=== PATIENT | male | born 1980 | race African-American/Black ===

== ENCOUNTER 2025-05-26 06:26 | Emergency (ER) | payer SELFPAY ==
[~2025-05-26] VITALS: Ht 180.3 cm; Wt 64.0 kg
[2025-05-26 06:34] VITALS: O2SAT 100
[2025-05-26] MEDS: ONDANSETRON HCL 4MG/2ML INJ IV ONE (08:27)
[2025-05-26] MEDS: SODIUM CHLORIDE 0.9% 1,000 ML IV ONE (08:27)
[2025-05-26] MEDS: KETOROLAC 15MG/ML VIAL IV ONE (08:28)
[2025-05-26] MEDS ORDERED: ONDA-239 PO (11:28)
[2025-05-26] MEDS ORDERED: IBUP-1455 MT (11:28)
[2025-05-26 12:16] VITALS: BP 117/84; PULSE 76; RESP 16; TEMP 36.8; O2SAT 100
== END 2025-05-26 12:31 | disposition home or self-care (01) ==
LOC: ER 06:46
DX: H57.12 Ocular pain, left eye (principal); R51.9 Headache, unspecified; F17.200 Nicotine dependence, unspecified, uncomplicated
CPT/HCPCS: 99285; 70450; 96374; 96361; 96375; 70486; J1885; J2405; J7030